=== PATIENT | female | born 1990 | race Caucasian/White ===

== ENCOUNTER → 2020-11-26 | Day surgery (SDC) | payer BC | LOC: CSHLD/OP 11:02 | PROVIDERS: ATTEND Obstetrics & Gynecology | DX: O99.019 Anemia complicating pregnancy, unspecified trimester (principal); D64.9 Anemia, unspecified; Z3A.00 Weeks of gestation of pregnancy not specified; Z91.048 Other nonmedicinal substance allergy status ==

== ENCOUNTER 2021-01-01 12:56 | Day surgery (SDC) | payer BC ==
[2021-01-01 14:32] VITALS: BMI 34.5
[2021-01-01] MEDS ORDERED: hydrALAZINE 20 MG/ML VIAL SLOW IVP PRN (14:51)
[2021-01-01] MEDS ORDERED: Ondansetron PF 4 MG/2 ML Vial IVP SCH (15:00)
[2021-01-01] MEDS ORDERED: Lactated Ringer's 2,000 ML IV SCH (15:00)
[2021-01-01 16:46] LABS: Anion Gap 11 mmol/L (10-20); BUN (Urea Nitrogen) Less than 4 mg/dL (7.0-18.7); Calc. Creatinine Clearance 180 mL/min (70-130); Calcium 8.3 mg/dL (7.8-10.44); Carbon Dioxide 21 mmol/L (22-29); Chloride 109 mmol/L (98-107); Glucose 76 mg/dL (70-105); Potassium 3.6 mmol/L (3.5-5.1); Sodium 137 mmol/L (136-145)
== END 2021-01-01 19:13 | disposition home or self-care (01) ==
LOC: CSHLD/OP 12:56
PROVIDERS: ATTEND Obstetrics & Gynecology
DX: O99.891 Other specified diseases and conditions complicating pregnancy (principal); R19.7 Diarrhea, unspecified; R51.9 Headache, unspecified; M54.9 Dorsalgia, unspecified; O99.283 Endocrine, nutritional and metabolic diseases complicating pregnancy, third trimester; E86.0 Dehydration; Z3A.37 37 weeks gestation of pregnancy; Z79.899 Other long term (current) drug therapy; Z91.048 Other nonmedicinal substance allergy status
CPT/HCPCS: 80048; 96360; 96361; 99282

== ENCOUNTER 2021-01-04 18:42 | Day surgery (SDC) | payer BC ==
[2021-01-04] MEDS ORDERED: hydrALAZINE 20 MG/ML VIAL SLOW IVP PRN (19:35)
== END 2021-01-04 20:05 | disposition home or self-care (01) ==
LOC: CSHLD/OP 18:42
PROVIDERS: ATTEND Obstetrics & Gynecology
DX: O99.891 Other specified diseases and conditions complicating pregnancy (principal); R03.0 Elevated blood-pressure reading, without diagnosis of hypertension; R07.9 Chest pain, unspecified; Z3A.38 38 weeks gestation of pregnancy; Z79.899 Other long term (current) drug therapy; Z91.048 Other nonmedicinal substance allergy status
CPT/HCPCS: 99282

== ENCOUNTER 2021-01-05 22:01 | Day surgery (SDC) | payer BC ==
[2021-01-05 22:47] VITALS: BMI 34.7
[2021-01-05] MEDS ORDERED: hydrALAZINE 20 MG/ML VIAL SLOW IVP PRN (23:27)
[2021-01-06 00:58] LABS: Hemoglobin 8.5 g/dL (12.0-15.5); Mean Corpuscular Hemoglobin 25.4 pg (27.0-33.0); Mean Corpuscular Volume 84.5 fl (81.6-98.3); Mean Platelet Volume 13.8 fl (7.4-10.4); Platelet Count 124 10x3/uL (150-450); RBC Distribution Width 17.5 % (11.5-14.5); Red Blood Cell (RBC) Count 3.35 10x6/uL (3.90-5.03); White Blood Cell (WBC) Count 8.9 10x3/uL (3.5-10.5)
[2021-01-06 01:07] LABS: ALT (SGPT) 7 U/L (8-55); AST (SGOT) 18 U/L (5-34); Albumin 2.9 g/dL (3.5-5.0); Alkaline Phosphatase 103 U/L (40-110); Anion Gap 13 mmol/L (10-20); BUN (Urea Nitrogen) 6 mg/dL (7.0-18.7); Bilirubin, Total 0.4 mg/dL (0.2-1.2); Calc. Creatinine Clearance 179 mL/min (70-130); Calcium 8.1 mg/dL (7.8-10.44); Carbon Dioxide 19 mmol/L (22-29); Chloride 108 mmol/L (98-107); Globulin 2.5 g/dL (2.4-3.5); Glucose 78 mg/dL (70-105); Potassium 3.7 mmol/L (3.5-5.1); Protein, Total 5.4 g/dL (6.0-8.3); Sodium 136 mmol/L (136-145)
[2021-01-06 01:20] LABS: Creatinine, Urine 200.06 mg/dL (47-110)
[2021-01-06 01:34] LABS: Band 2 % (5-11); Lymphocytes 11 % (21-51); Monocytes 5 % (0-10); Reactive Lymphocytes 7 % (0-10)
[2021-01-06 01:35] LABS: Anisocytosis SLIGHT = 6-15 cells (100X) (0-5/hpf); Microcytosis MODERATE=15-30 cells (100X) (0-5/hpf); Neutrophil 74 % (42-75)
[2021-01-06 01:36] LABS: Large Platelets MODERATE; Manual Diff?? YES; Ovalocytes SLIGHT = 2-5 cells (100X) (0-1/hpf); Platelet Morphology Comment Appears Decreased
[2021-01-06 01:37] LABS: MDiff Complete? YES
== END 2021-01-06 01:45 | disposition home or self-care (01) ==
LOC: CSHLD/OP 22:01
PROVIDERS: ATTEND Obstetrics & Gynecology
DX: O99.891 Other specified diseases and conditions complicating pregnancy (principal); R03.0 Elevated blood-pressure reading, without diagnosis of hypertension; O99.013 Anemia complicating pregnancy, third trimester; D50.9 Iron deficiency anemia, unspecified; Z3A.38 38 weeks gestation of pregnancy; Z79.82 Long term (current) use of aspirin; Z91.048 Other nonmedicinal substance allergy status
CPT/HCPCS: 80053; 82570; 84156; 85025; 99284

== ENCOUNTER 2021-01-12 11:52 | Day surgery (SDC) | payer BC ==
[2021-01-12] MEDS ORDERED: hydrALAZINE 20 MG/ML VIAL SLOW IVP PRN (12:34)
[2021-01-12 15:31] LABS: #Monocytes 0.6 10x3/uL (0.0-1.1); #Neutrophils 5.8 10x3/uL (1.5-8.4); %Basophils 0.1 % (0.0-2.0); %Eosinophils 0.1 % (0.0-6.0); %Lymphocytes 16.6 % (18.0-47.0); %Monocytes 7.2 % (0.0-10.0); %Neutrophils 75.4 % (40.0-75.0); Hemoglobin 8.8 g/dL (12.0-15.5); Mean Corpuscular HGB CONC 30.8 g/dL (32.0-36.0); Mean Corpuscular Hemoglobin 25.6 pg (27.0-33.0); Mean Corpuscular Volume 83.1 fl (81.6-98.3); Platelet Count 135 10x3/uL (150-450); RBC Distribution Width 17.3 % (11.5-14.5); Red Blood Cell (RBC) Count 3.44 10x6/uL (3.90-5.03); White Blood Cell (WBC) Count 7.8 10x3/uL (3.5-10.5)
[2021-01-12 15:40] LABS: ALT (SGPT) 7 U/L (8-55); AST (SGOT) 18 U/L (5-34); Alkaline Phosphatase 112 U/L (40-110); Anion Gap 11 mmol/L (10-20); BUN (Urea Nitrogen) 8 mg/dL (7.0-18.7); Bilirubin, Total 0.4 mg/dL (0.2-1.2); Calc. Creatinine Clearance 0 mL/min (70-130); Calcium 8.4 mg/dL (7.8-10.44); Carbon Dioxide 22 mmol/L (22-29); Chloride 108 mmol/L (98-107); Globulin 2.8 g/dL (2.4-3.5); Glucose 106 mg/dL (70-105); Potassium 3.8 mmol/L (3.5-5.1); Protein, Total 5.8 g/dL (6.0-8.3); Sodium 137 mmol/L (136-145)
[2021-01-13 01:24] LABS: SARS-CoV-2 PCR by NAA Not Detected (NotDetected)
== END 2021-01-12 16:04 | disposition home or self-care (01) ==
LOC: CSHLD/OP 11:52
PROVIDERS: ATTEND Obstetrics & Gynecology
DX: O46.93 Antepartum hemorrhage, unspecified, third trimester (principal); O99.891 Other specified diseases and conditions complicating pregnancy; R10.9 Unspecified abdominal pain; O99.343 Other mental disorders complicating pregnancy, third trimester; F41.9 Anxiety disorder, unspecified; F32.9 Major depressive disorder, single episode, unspecified; O09.813 Supervision of pregnancy resulting from assisted reproductive technology, third trimester; Z79.899 Other long term (current) drug therapy; Z88.8 Allergy status to other drugs, medicaments and biological substances; Z20.822 Contact with and (suspected) exposure to COVID-19
CPT/HCPCS: 80053; 85025; 87635; U0003; U0005

== ENCOUNTER 2021-01-15 10:16 | Inpatient (IN) | payer BC ==
[~2021-01-15 10:16] MED LIST: Bupivacaine 0.25% HCL 30 ML VIAL ONE; Lidocaine 2% MPF 10 ML AMP (For Epidural Use) ONE
[2021-01-15 10:49] VITALS: BMI 34.7
[2021-01-15] MEDS ORDERED: HYDROcodone/Acetaminophen 5/325 mg Tablet PO PRN ×2 (11:25)
[2021-01-15] MEDS ORDERED: Ibuprofen 800 MG TAB PO PRN (11:25)
[2021-01-15] MEDS ORDERED: Ondansetron PF 4 MG/2 ML Vial IVP PRN ×2 (11:25→21:07)
[2021-01-15] MEDS ORDERED: Misoprostol 200 MCG TAB PR PRN (11:25)
[2021-01-15] MEDS ORDERED: Lidocaine 1% (PF) 30 ML VIAL SC PRN (11:25)
[2021-01-15] MEDS ORDERED: Diphenoxylate HCl/Atropine Tablet PO PRN ×2 (11:25)
[2021-01-15] MEDS ORDERED: Promethazine HCl 25 MG/ML VIAL IM PRN ×2 (11:25→21:07)
[2021-01-15] MEDS ORDERED: hydrALAZINE 20 MG/ML VIAL SLOW IVP PRN ×2 (11:25→23:35)
[2021-01-15] MEDS ORDERED: Acetaminophen 500 MG TAB PO PRN (11:25)
[2021-01-15] MEDS ORDERED: Carboprost 250 MCG/ML AMP IM PRN (11:25)
[2021-01-15] MEDS ORDERED: Lactated Ringer's 1,000 ML IV SCH (11:30)
[2021-01-15] MEDS ORDERED: NS w/ Oxytocin 30 units 500 ML IV PRN (11:54)
[2021-01-15] MEDS ORDERED: NS w/ Oxytocin 30 units 500 ML IVPB SCH (12:00)
[2021-01-15] MEDS: Misoprostol 100 MCG TAB VAG SCH (12:43)
[2021-01-15 13:51] LABS: Hemoglobin 8.8 g/dL (12.0-15.5); Mean Corpuscular HGB CONC 30.6 g/dL (32.0-36.0); Mean Corpuscular Hemoglobin 25.4 pg (27.0-33.0); Mean Corpuscular Volume 83.2 fl (81.6-98.3); Platelet Count 138 10x3/uL (150-450); RBC Distribution Width 17.7 % (11.5-14.5); Red Blood Cell (RBC) Count 3.46 10x6/uL (3.90-5.03); White Blood Cell (WBC) Count 7.1 10x3/uL (3.5-10.5)
[2021-01-15 14:06] LABS: ALT (SGPT) 7 U/L (8-55); AST (SGOT) 19 U/L (5-34); Albumin 3.1 g/dL (3.5-5.0); Alkaline Phosphatase 124 U/L (40-110); Anion Gap 15 mmol/L (10-20); BUN (Urea Nitrogen) 7 mg/dL (7.0-18.7); Bilirubin, Total 0.5 mg/dL (0.2-1.2); Calc. Creatinine Clearance 170 mL/min (70-130); Calcium 8.3 mg/dL (7.8-10.44); Carbon Dioxide 18 mmol/L (22-29); Chloride 109 mmol/L (98-107); Globulin 2.4 g/dL (2.4-3.5); Glucose 93 mg/dL (70-105); Potassium 3.9 mmol/L (3.5-5.1); Protein, Total 5.5 g/dL (6.0-8.3); Sodium 138 mmol/L (136-145)
[2021-01-15 14:08] LABS: Syphilis Antibody Nonreactive (Nonreactive); Syphilis Antibody Index 0.03 S/CO (<1.00 Non-Reactive)
[2021-01-15 14:35] LABS: Hep B Surf Ag Non-Reactive S/CO (NonReactive)
[2021-01-15 14:36] LABS: HBSAg Index 0.14 S/CO (0-0.99)
[2021-01-15] MEDS: Butorphanol Tartrate 1 MG/ML VIAL SLOW IVP PRN ×2 (20:13→21:11)
[2021-01-15] MEDS ORDERED: Fentanyl 4 mcg/Bup 0.1% Cadd 100 ML ONE (20:55)
[2021-01-15] MEDS ORDERED: Lactated Ringer's 500 ML IV PRN (21:07)
[2021-01-15] MEDS ORDERED: Eucerin (Mineral Oil/Petrolatum,White) 30 gm Jar TOP PRN (21:07)
[2021-01-15] MEDS ORDERED: ePHEDrine 50 MG/ML VIAL SLOW IVP PRN (21:07)
[2021-01-15] MEDS ORDERED: Naloxone HCl 0.4 mg/ml Vial IVP PRN ×2 (21:07)
[2021-01-15] MEDS ORDERED: Acetaminophen 325 MG TAB PO PRN (21:07)
[2021-01-15] MEDS ORDERED: diphenhydrAMINE 50 MG/ML VIAL IVP PRN (21:07)
[2021-01-15] MEDS ORDERED: Communication Order-Pharmacy FS SCH (21:15)
[2021-01-15] MEDS ORDERED: Fentanyl 4 mcg/Bupivacaine 0.1% Cassette 100 ML EPIDURAL SCH (21:15)
[2021-01-15] MEDS ORDERED: Lidocaine 1% (PF) 30 ML VIAL ONE (22:53)
[2021-01-15] MEDS ORDERED: NS w/ Oxytocin 30 units 500 ML ONE (22:53)
[2021-01-15] MEDS ORDERED: Misoprostol 200 MCG TAB ONE (22:54)
[2021-01-15] MEDS ORDERED: Bisacodyl 10 MG SUPP PR PRN (23:35)
[2021-01-15] MEDS ORDERED: Preparation H Ointment 28 GM TUBE PR PRN (23:35)
[2021-01-15] MEDS ORDERED: Milk Of Magnesia 30 ML UDCUP PO PRN (23:35)
[2021-01-15] MEDS ORDERED: Benzocaine-Menthol 82.5 ML CAN TOP PRN (23:35)
[2021-01-15] MEDS ORDERED: traMADol HCl 50 MG TAB PO PRN (23:35)
[2021-01-15] MEDS ORDERED: NS / Oxytocin 40 units/1000ml 1,000 ML IV SCH (23:45)
[2021-01-16] MEDS: Ibuprofen 800 MG TAB PO SCH ×3 (07:21→22:00)
[2021-01-16] MEDS: Misoprostol 100 MCG TAB VAG SCH ×2 (07:29→07:30)
[2021-01-16] MEDS: Prenatal Vitamin 1 TAB PO SCH (08:14)
[2021-01-16] MEDS: Ferrous Sulfate 325 MG TAB PO SCH ×2 (08:14→16:42)
[2021-01-16] MEDS: Docusate Calcium (SURFAK) 240 MG CAP PO SCH ×2 (08:14→22:00)
[2021-01-16] MEDS ORDERED: Adacel (T-DAP) 0.5 ML SYRINGE IM ONE (09:00)
[2021-01-17] MEDS: Ibuprofen 800 MG TAB PO SCH ×2 (05:55→14:26)
[2021-01-17] MEDS: Prenatal Vitamin 1 TAB PO SCH (08:39)
[2021-01-17] MEDS: Docusate Calcium (SURFAK) 240 MG CAP PO SCH (08:39)
[2021-01-17] MEDS: Ferrous Sulfate 325 MG TAB PO SCH (08:39)
[2021-01-17 11:12] VITALS: BP 139/82; TEMP 98.5
[2021-01-17] MEDS ORDERED: diphenhydrAMINE 25 MG CAP PO SCH (14:15)
== END 2021-01-17 16:20 | disposition home or self-care (01) | DRG 807 ==
LOC: CSHLD/OP 10:16 → CSHLD 20:06 → CSHPP 01-16 01:25
PROVIDERS: ADMIT Obstetrics & Gynecology; ATTEND Obstetrics & Gynecology
PROC: 10D07Z6 Extraction of Products of Conception, Vacuum, Via Natural or Artificial Opening (ICD-10-PCS; principal; 2021-01-15)
PROC: 0KQM0ZZ Repair Perineum Muscle, Open Approach (ICD-10-PCS; 2021-01-15)
PROC: 3E0P7VZ Introduction of Hormone into Female Reproductive, Via Natural or Artificial Opening (ICD-10-PCS; 2021-01-15)
DX: O13.4 Gestational [pregnancy-induced] hypertension without significant proteinuria, complicating childbirth (principal); Z37.0 Single live birth; Z3A.39 39 weeks gestation of pregnancy; Z20.822 Contact with and (suspected) exposure to COVID-19; O76 Abnormality in fetal heart rate and rhythm complicating labor and delivery; O70.1 Second degree perineal laceration during delivery; D64.9 Anemia, unspecified; Z91.09 Other allergy status, other than to drugs and biological substances; O99.02 Anemia complicating childbirth
CPT/HCPCS: 36415; 80053; 85025; 85027; 86780; 86850; 86900; 86901; 87340; 87635; 99283; 99285; J0360; J0595; J2001; J2405; J2590; Q0163; S0020; U0003; U0005

== ENCOUNTER 2021-01-19 13:49 | Inpatient (IN) | payer BC ==
[2021-01-19] MEDS ORDERED: Promethazine HCl 25 MG/ML VIAL IM PRN (14:33)
[2021-01-19] MEDS ORDERED: Calcium Gluconate 4.6 MEQ in Sodium Chloride 0.9% 100 ML IVPB PRN (14:33)
[2021-01-19] MEDS ORDERED: Ondansetron PF 4 MG/2 ML Vial IVP PRN (14:33)
[2021-01-19] MEDS ORDERED: Butorphanol Tartrate 1 MG/ML VIAL SLOW IVP PRN (14:33)
[2021-01-19] MEDS ORDERED: hydrALAZINE 20 MG/ML VIAL ONE (14:40)
[2021-01-19] MEDS ORDERED: Magnesium Sulfate 20 GM/WATER 500 ML BAG IVPB SCH (14:45)
[2021-01-19] MEDS ORDERED: Lactated Ringer's 1,000 ML IV SCH (14:45)
[2021-01-19] MEDS ORDERED: Magnesium Sulfate 20 gm/500 ml 20 GM/500 ML BAG ONE (14:55)
[2021-01-19] MEDS ORDERED: Magnesium Sulfate 20 gm/500 ml 4 GM/100 ML BAG IVPB SCH (15:00)
[2021-01-19 15:04] LABS: Hemoglobin 7.9 g/dL (12.0-15.5); Mean Corpuscular HGB CONC 30.5 g/dL (32.0-36.0); Mean Corpuscular Hemoglobin 26.2 pg (27.0-33.0); Mean Corpuscular Volume 85.8 fl (81.6-98.3); Mean Platelet Volume 11.9 fl (7.4-10.4); Platelet Count 170 10x3/uL (150-450); RBC Distribution Width 17.5 % (11.5-14.5); Red Blood Cell (RBC) Count 3.02 10x6/uL (3.90-5.03); White Blood Cell (WBC) Count 6.7 10x3/uL (3.5-10.5)
[2021-01-19] MEDS: Magnesium Sulfate 20 gm/500 ml 20 GM/500 ML BAG IVPB SCH (15:04)
[2021-01-19 15:15] LABS: ALT (SGPT) 14 U/L (8-55); AST (SGOT) 25 U/L (5-34); Albumin 3.3 g/dL (3.5-5.0); Alkaline Phosphatase 90 U/L (40-110); Anion Gap 14 mmol/L (10-20); BUN (Urea Nitrogen) 8 mg/dL (7.0-18.7); Bilirubin, Total 0.4 mg/dL (0.2-1.2); Calc. Creatinine Clearance 0 mL/min (70-130); Calcium 8.4 mg/dL (7.8-10.44); Carbon Dioxide 20 mmol/L (22-29); Chloride 109 mmol/L (98-107); Globulin 2.7 g/dL (2.4-3.5); Glucose 84 mg/dL (70-105); Potassium 3.9 mmol/L (3.5-5.1); Sodium 139 mmol/L (136-145)
[2021-01-19] MEDS: Acetaminophen 500 MG TAB PO SCH ×2 (16:54→23:12)
[2021-01-19] MEDS: hydrALAZINE 20 MG/ML VIAL SLOW IVP PRN (17:00)
[2021-01-19] MEDS ORDERED: Morphine 2 MG/ML VIAL SLOW IVP PRN (18:28)
[2021-01-19] MEDS ORDERED: Labetalol 100 MG TAB PO SCH (18:45)
[2021-01-19] MEDS ORDERED: Morphine 4 MG/ML VIAL ONE (21:04)
[2021-01-20 00:21] VITALS: BMI 34.0
[2021-01-20] MEDS: Metoclopramide HCl 10 MG/2 ML VIAL IVP PRN ×3 (00:42→01:42)
[2021-01-20] MEDS: diphenhydrAMINE 50 MG/ML VIAL IVP SCH ×2 (00:42→01:42)
[2021-01-20] MEDS ORDERED: diphenhydrAMINE 25 MG in Sodium Chloride 0.9% 50 ML IVPB SCH (01:00)
[2021-01-20] MEDS: Magnesium Sulfate 20 gm/500 ml 20 GM/500 ML BAG IVPB SCH (01:27)
[2021-01-20] MEDS ORDERED: Metoclopramide HCl 10 MG/2 ML VIAL IVP SCH (01:30)
[2021-01-20] MEDS ORDERED: diphenhydrAMINE 50 MG/ML VIAL IVP SCH ×2 (02:00→09:00)
[2021-01-20] MEDS ORDERED: Metoclopramide HCl 10 MG/2 ML VIAL IVP PRN (02:01)
[2021-01-20] MEDS: Acetaminophen 500 MG TAB PO SCH (08:09)
[2021-01-20] MEDS ORDERED: Labetalol 100 MG TAB PO SCH (09:00)
[2021-01-20] MEDS ORDERED: NIFEdipine XL 30 MG TAB PO SCH (09:00)
[2021-01-20] MEDS ORDERED: diphenhydrAMINE 50 MG/ML VIAL ONE ×2 (09:06→09:09)
[2021-01-20] MEDS ORDERED: Prochlorperazine 10 MG/2 ML VIAL IM SCH (09:15)
[2021-01-20] MEDS: hydrALAZINE 20 MG/ML VIAL SLOW IVP PRN (10:12)
[2021-01-20] MEDS ORDERED: Adacel (T-DAP) 0.5 ML SYRINGE IM ONE (15:00)
[2021-01-20] MEDS ORDERED: hydrALAZINE 20 MG/ML VIAL SLOW IVP PRN (15:00)
[2021-01-20] MEDS ORDERED: Milk Of Magnesia 30 ML UDCUP PO PRN (15:00)
[2021-01-20] MEDS ORDERED: Lanolin Ointment 7 GM TUBE TOP PRN (15:00)
[2021-01-20] MEDS ORDERED: traMADol HCl 50 MG TAB PO PRN (15:00)
[2021-01-20] MEDS ORDERED: Zolpidem Tartrate 5 MG TAB PO PRN (15:00)
[2021-01-20] MEDS ORDERED: Bisacodyl 10 MG SUPP PR PRN (15:00)
[2021-01-20] MEDS ORDERED: NS w/ Oxytocin 30 units 500 ML IVPB SCH (15:15)
[2021-01-20] MEDS: Ibuprofen 800 MG TAB PO SCH (18:22)
[2021-01-20] MEDS: Ferrous Sulfate 325 MG TAB PO SCH (18:22)
[2021-01-20] MEDS: Docusate Calcium (SURFAK) 240 MG CAP PO SCH (20:53)
[2021-01-20] MEDS: traMADol HCl 50 MG TAB PO PRN (21:58)
[2021-01-20] MEDS ORDERED: Ibuprofen 800 MG TAB PO SCH (22:00)
[2021-01-21] MEDS: Ibuprofen 800 MG TAB PO SCH ×3 (03:17→17:32)
[2021-01-21] MEDS: Ferrous Sulfate 325 MG TAB PO SCH ×2 (08:31→17:32)
[2021-01-21] MEDS: Docusate Calcium (SURFAK) 240 MG CAP PO SCH (08:34)
[2021-01-21] MEDS ORDERED: Prenatal Vitamin 1 TAB PO SCH (09:00)
[2021-01-21] MEDS ORDERED: NIFEdipine XL 30 MG TAB PO SCH (09:00)
[2021-01-21] MEDS: traMADol HCl 50 MG TAB PO PRN (15:58)
[2021-01-21 16:14] VITALS: BP 129/74; TEMP 98.1
== END 2021-01-21 18:05 | disposition home or self-care (01) | DRG 776 ==
LOC: CSHLD 13:49 → CSHPP 01-20 17:51
PROVIDERS: ADMIT Obstetrics & Gynecology; ATTEND Obstetrics & Gynecology
DX: O14.15 Severe pre-eclampsia, complicating the puerperium (principal); O99.355 Diseases of the nervous system complicating the puerperium; G44.1 Vascular headache, not elsewhere classified; O13.5 Gestational [pregnancy-induced] hypertension without significant proteinuria, complicating the puerperium
CPT/HCPCS: 51702; 70450; 80053; 83735; 85027; 99285; J0360; J0595; J0780; J1200; J2270; J2405; J2765; J3475